=== PATIENT | male | born 1995 | race Asian ===

== ENCOUNTER 2021-11-30 00:17 | Emergency (ER) | payer MEDICAID ==
[~2021-11-30] VITALS: Ht 167.6 cm; Wt 68.0 kg
--- NOTE | 2021-11-30 01:00 | NUR ---
security guards dispatcher at pt's bedside
--- NOTE | 2021-11-30 01:03 | NUR ---
BIBS FOR S/I WITH NO PLAN SEEKING VOLUNTARY ADMISSION TO [facility]. PT A/OX3; TOLERATING R/A WELL WITH NO SOB. PT IN GOWN, WANDED BY SECURITY, AND BELONGINGS PLACED IN STORAGE. SAFETY MEASURES IN PLACE.
[2021-11-30 01:34] LABS: BASOPHILS % (AUTO) 0.5 % (0.0-2.0); EOSINOPHILS % (AUTO) 1.4 % (0.0-6.0); HEMATOCRIT 45 % (39-51); LYMPHOCYTES # (AUTO) 2.1 K/uL (0.8-4.8); LYMPHOCYTES % (AUTO) 22.8 % (20.0-44.0); MEAN CORPUSCULAR HGB CONC 33 g/dl (31.0-36.0); MEAN CORPUSCULAR VOLUME 92 fL (80-96); MONOCYTES # (AUTO) 0.8 K/uL (0.1-1.30); MONOCYTES % (AUTO) 9.2 % (2.0-12.0); NEUTROPHILS # (AUTO) 6.1 K/uL (1.8-8.9); NEUTROPHILS % (AUTO) 66.1 % (43.0-81.0); PLATELET COUNT (AUTO) 297 K/uL (150-450); RED BLOOD CELL COUNT(AUTO) 4.87 MIL/uL (4.5-6.0); WHITE BLOOD COUNT (AUTO) 9.3 K/uL (4.3-11.0)
[2021-11-30 01:42] LABS: CALCIUM, SERUM 8.8 mg/dL (8.5-10.1); CARBON DIOXIDE 30 mmol/L (21-32); CHLORIDE 101 mmol/L (98-107); GLUCOSE 84 mg/dL (74-106); POTASSIUM 4.2 mmol/L (3.5-5.1); SODIUM SERUM 136 mmol/L (136-145); UREA NITROGEN, BLOOD 12 mg/dL (7-18)
[2021-11-30 02:05] LABS: BILIRUBIN,DIRECT 0.1 mg/dL (0.0-0.2); BILIRUBIN,TOTAL 0.6 mg/dL (0.2-1.0)
[2021-11-30 02:06] LABS: ACETAMINOPHEN 0 ug/ml (10-30); ALANINE AMINOTRANSFERASE 40 U/L (12-78); ALBUMIN 4.5 g/dL (3.4-5.0); ALCOHOL, BLOOD < 3 mg/dL (0-0); ALKALINE PHOSPHATASE 75 U/L (46-116); ASPARTATE AMINOTRANSFERASE 29 U/L (15-37); TOTAL PROTEIN, SERUM 7.9 g/dL (6.4-8.2)
[2021-11-30 04:50] LABS: BILIRUBIN,URINE NEGATIVE (NEGATIVE); COLOR,URINE YELLOW (YELLOW); LEUKOCYTE ESTERASE ,URINE NEGATIVE (NEGATIVE); NITRITE, URINE NEGATIVE (NEGATIVE); PROTEIN,URINE NEGATIVE (NEGATIVE); UGLUCOSE NEGATIVE (NEGATIVE); UROBILINOGEN,URINE 0.2 EU/dL (0.2)
--- NOTE | 2021-11-30 04:51 | NUR ---
FOOD PROVIDED TO PT
--- NOTE | 2021-11-30 05:30 | NUR ---
CLINICALS FAXED TO [facility]
--- NOTE | 2021-11-30 07:55 | NUR ---
Pt upset states "I came here for prescription refill been here 8H and it still has NOT been done. I just want my stuff so I can leave. I an NOT suicidal" Easily directable. AAO x3. [facility]CS-15 Refusing any further intervention and care. Dr charles aware Pt not on psych hold. For discharge
--- NOTE | 2021-11-30 07:55 | NUR ---
PATIENT VERBALIZES HE'S NOT SUICIDAL ANYMORE AND WANTED TO LEAVE. MADE MD AWARE
--- NOTE | 2021-11-30 08:00 | NUR ---
Patient given written and verbal discharge instructions. Patient verbalizes understanding of instructions. Patient is ambulatory with steady gait. Refuses offer of [facility] placement. Patient given list of available shelters in surrounding area. All belongings given back to patient. Name band removed. In proper clothing upon discharge.
[2021-11-30 08:07] VITALS: BP 118/75
== END 2021-11-30 08:07 | disposition home or self-care (01) ==
LOC: ER 00:24
DX: R45.851 Suicidal ideations (principal); F19.10 Other psychoactive substance abuse, uncomplicated; Z20.822 Contact with and (suspected) exposure to COVID-19; Z59.00 Homelessness unspecified
CPT/HCPCS: 36415; 80048; 80076; 80143; 80307; 80320; 81003; 85025; 87426; 99285; C9803; G0480

== ENCOUNTER 2024-02-06 14:12 | Inpatient (IN) | payer OTHER ==
[~2024-02-06] VITALS: Ht 170.2 cm; Wt 70.3 kg
[2024-02-06] MEDS ORDERED: MERO1VIA23 IV (22:28)
[2024-02-06] MEDS ORDERED: POTA20TA83 IV (22:28)
[2024-02-06] MEDS ORDERED: NICO1PAT44 TD (22:28)
[2024-02-06] MEDS ORDERED: CHLO25CA22 PO (22:28)
[2024-02-06] MEDS ORDERED: VENL75TA4 PO (22:28)
[2024-02-06] MEDS ORDERED: ONDA4TAB5 IV (22:28)
[2024-02-06] MEDS ORDERED: VITS5OIN2 TP (22:28)
[2024-02-06] MEDS ORDERED: ACET325T53 MC (22:28)
[2024-02-06] MEDS ORDERED: MORP15TA IV (22:28)
[2024-02-06] MEDS ORDERED: QUET400T PO (22:28)
[2024-02-06] MEDS ORDERED: ENOX40DI SQ (22:28)
[2024-02-06] MEDS ORDERED: HYDR50TA61 PO (22:28)
[2024-02-06] MEDS ORDERED: VANC250C12 IV (22:28)
[2024-02-06] MEDS ORDERED: LORA-259 PO (22:28)
[2024-02-06] MEDS ORDERED: GABA600T12 PO (22:28)
[2024-02-06] MEDS ORDERED: PANT40TA2 PO (22:28)
[2024-02-06] MEDS ORDERED: CLINDAMYCIN PHOSPHATE IV 600 MG/4 ML VIAL IV SCH (23:00)
[2024-02-06] MEDS ORDERED: Z GUARD REMEDY 4 OZ OINT TP PRN (23:00)
[2024-02-06] MEDS ORDERED: ZOLPIDEM TARTRATE 5 MG TABLET PO PRN (23:00)
[2024-02-06] MEDS ORDERED: MAG HYDROX/AL HYDROX/SIMETH 30 ML UDC PO PRN (23:00)
[2024-02-06] MEDS ORDERED: ONDANSETRON HCL/PF 4 MG/2 ML VIAL IVP PRN (23:00)
[2024-02-06] MEDS ORDERED: MEROPENEM 1 G VIAL IV SCH (23:00)
[2024-02-07] VITALS: BP 140/85; TEMP 99.5; O2SAT 95
[2024-02-07] MEDS: CHLORDIAZEPOXIDE HCL 25 MG CAPSULE PO SCH (00:09)
[2024-02-07] MEDS: MORPHINE SULFATE INJ 2 MG/ML DISP.SYRIN IV PRN (00:16)
[2024-02-07] MEDS: IV NS 0.9% 1,000 ML IV PRN (00:44)
[2024-02-07] MEDS ORDERED: MEROPENEM 1 G VIAL IV ONE (00:56)
[2024-02-07] MEDS ORDERED: CLINDAMYCIN 900 MG/6 ML VIAL ONE (00:57)
[2024-02-07] MEDS: MEROPENEM 1 G in IV NS 0.9% 50 ML IV ONE (01:14)
[2024-02-07] MEDS: NS 0.9% IV SCH (02:01)
[2024-02-07] MEDS: CLINDAMYCIN PHOSPHATE IV SCH (02:01)
[2024-02-07] MEDS: VANCOMYCIN 1 GM /D5W 250 ML PB IV ONE (04:11)
[2024-02-07] MEDS: VANCOMYCIN 1 GM in IV NS 0.9% 250 ML IV ONE (04:22)
[2024-02-07] MEDS ORDERED: VANCOMYCIN IV SCH (05:00)
[2024-02-07] MEDS ORDERED: CLINDAMYCIN PHOSPHATE IV 600 MG/4 ML VIAL IV ONE (05:00)
[2024-02-07 06:33] LABS: BASOPHILS % (AUTO) 0.2 % (0.0-2.0); EOSINOPHILS # (AUTO) 0.1 K/uL (0.0-0.7); EOSINOPHILS % (AUTO) 0.4 % (0.0-6.0); HEMATOCRIT 40 % (39-51); HEMOGLOBIN 13.5 g/dL (13.5-17.5); LYMPHOCYTES # (AUTO) 1.8 K/uL (0.8-4.8); LYMPHOCYTES % (AUTO) 10.2 % (20.0-44.0); MEAN CORPUSCULAR HEMOGLOBIN 31 PG (26.0-33.0); MEAN CORPUSCULAR HGB CONC 34 g/dl (31.0-36.0); MEAN CORPUSCULAR VOLUME 93 fL (80-96); MONOCYTES # (AUTO) 1.1 K/uL (0.1-1.30); NEUTROPHILS # (AUTO) 14.7 K/uL (1.8-8.9); NEUTROPHILS % (AUTO) 83.2 % (43.0-81.0); PLATELET COUNT (AUTO) 273 K/uL (150-450); RED BLOOD CELL COUNT(AUTO) 4.31 MIL/uL (4.5-6.0); RED CELL DISTRIBUTION WIDTH 13.6 % (11.5-15.0); WHITE BLOOD COUNT (AUTO) 17.6 K/uL (4.3-11.0)
[2024-02-07 06:51] LABS: POTASSIUM 3.6 mmol/L (3.5-5.1)
[2024-02-07 07:04] LABS: CALCIUM, SERUM 8.4 mg/dL (8.5-10.1)
[2024-02-07 08:00] VITALS: BP 127/77; TEMP 99; O2SAT 96
[2024-02-07] MEDS: ENOXAPARIN SODIUM 40 MG/0.4 ML DISP.SYRIN SQ SCH (08:09)
[2024-02-07] MEDS: VENLAFAXINE 37.5 MG TABLET PO SCH (08:10)
[2024-02-07] MEDS: PANTOPRAZOLE 40 MG TABLET.DR PO SCH (08:10)
[2024-02-07] MEDS: hydrOXYzine PAMOATE 25 MG CAPSULE PO SCH (08:10)
[2024-02-07] MEDS ORDERED: GABA600T12 PO (08:11)
[2024-02-07] MEDS ORDERED: PROP10TA10 PO (08:11)
[2024-02-07] MEDS: NICOTINE PATCH (14MG) 14 MG PATCH.TD24 TD SCH (08:13)
[2024-02-07] MEDS: VITS A AND D/WHITE PET/LANOLIN 5 GM PACKET TP SCH (08:15)
[2024-02-07] MEDS: ACETAMINOPHEN 325 MG TABLET PO PRN (08:53)
[2024-02-07] MEDS: VANCOMYCIN 1 GM in IV D5W 250ml IV SCH (09:00)
[2024-02-07 09:23] LABS: MAGNESIUM 1.5 mg/dL (1.8-2.4); PHOSPHORUS 3.4 mg/dL (2.5-4.9)
[2024-02-07] MEDS: MEROPENEM 1 G in IV NS 0.9% 100 ML IV SCH (10:05)
[2024-02-07] MEDS ORDERED: POLYMYXIN B SULFATE 0 UNITS ONE (13:37)
[2024-02-07] MEDS ORDERED: LIDOCAINE HCL/MPF 1% 30 ML VIAL IJ ONE (13:37)
[2024-02-07] MEDS ORDERED: BUPIVACAINE 0.5 % PF 150 MG/30 ML VIAL ONE (13:37)
[2024-02-07] MEDS ORDERED: LIDOCAINE 1%-EPI 1:100,000 20 ML VIAL ONE (13:37)
[2024-02-07] MEDS: LORAZEPAM 1 MG TABLET PO SCH (13:54)
[2024-02-07] MEDS ORDERED: FENTANYL PF 100MCG/2ML AMPUL ONE ×3 (15:52→17:37)
[2024-02-07] MEDS ORDERED: ROCURONIUM BROMIDE 50 MG/5 ML ONE (15:52)
[2024-02-07] MEDS ORDERED: CELLULOSE,OXIDIZED 1 EA PACK MC ONE (16:25)
[2024-02-07] MEDS ORDERED: EPINEPHRINE (1:1000) 1 MG/ML AMPUL ONE (17:06)
[2024-02-07 20:00] VITALS: BP 135/87; TEMP 98.8; O2SAT 97
[2024-02-07] MEDS: GABAPENTIN 400 MG CAPSULE PO SCH (21:12)
[2024-02-07] MEDS: QUETIAPINE FUMARATE 100 MG TABLET PO SCH (23:56)
[2024-02-08 08:00] VITALS: BP 128/67; TEMP 98.6; O2SAT 94
[2024-02-08 10:34] LABS: CREATININE 0.9 mg/dL (0.6-1.3)
[2024-02-08 15:45] LABS: HIV-1 p24 ANTIGEN NON REACTIVE (NONREACTIVE); HIV-1/2 ANTIBODY NON REACTIVE (NONREACTIVE)
[2024-02-08 16:00] VITALS: BP 118/68; TEMP 95.6; O2SAT 98
[2024-02-08 20:00] VITALS: BP 114/71; TEMP 98.6; O2SAT 99
[2024-02-09] MEDS: MAGNESIUM HYDROXIDE 30 ML UDC PO PRN (00:37)
[2024-02-09 07:36] LABS: BASOPHILS % (AUTO) 0.5 % (0.0-2.0); EOSINOPHILS # (AUTO) 0.2 K/uL (0.0-0.7); EOSINOPHILS % (AUTO) 3.2 % (0.0-6.0); HEMATOCRIT 36 % (39-51); HEMOGLOBIN 12.2 g/dL (13.5-17.5); LYMPHOCYTES # (AUTO) 1.6 K/uL (0.8-4.8); LYMPHOCYTES % (AUTO) 27.7 % (20.0-44.0); MEAN CORPUSCULAR HEMOGLOBIN 31 PG (26.0-33.0); MEAN CORPUSCULAR HGB CONC 34 g/dl (31.0-36.0); MEAN CORPUSCULAR VOLUME 92 fL (80-96); MONOCYTES # (AUTO) 0.7 K/uL (0.1-1.30); MONOCYTES % (AUTO) 11.5 % (2.0-12.0); NEUTROPHILS # (AUTO) 3.3 K/uL (1.8-8.9); NEUTROPHILS % (AUTO) 57.1 % (43.0-81.0); PLATELET COUNT (AUTO) 354 K/uL (150-450); RED BLOOD CELL COUNT(AUTO) 3.89 MIL/uL (4.5-6.0); RED CELL DISTRIBUTION WIDTH 13.7 % (11.5-15.0); WHITE BLOOD COUNT (AUTO) 5.8 K/uL (4.3-11.0)
[2024-02-09 08:00] VITALS: BP 117/64; TEMP 98.7; O2SAT 97
[2024-02-09 08:10] LABS: ALBUMIN 2.1 g/dL (3.4-5.0); BILIRUBIN,TOTAL 0.4 mg/dL (0.2-1.0); CREATININE 0.8 mg/dL (0.6-1.3); MAGNESIUM 2.5 mg/dL (1.8-2.4); PHOSPHORUS 3.5 mg/dL (2.5-4.9); POTASSIUM 3.9 mmol/L (3.5-5.1); TOTAL PROTEIN, SERUM 6.4 g/dL (6.4-8.2)
[2024-02-09] MEDS: MEROPENEM 1 G in IV NS 0.9% 100 ML IV SCH (08:17)
[2024-02-09] MEDS: GABAPENTIN 300 MG CAPSULE PO SCH (08:19)
[2024-02-09 09:09] VITALS: BP 131/78
[2024-02-09] MEDS: HYDROMORPHONE 1 MG/1 ML DISP.SYRIN IV ONE (11:00)
[2024-02-09] MEDS: KETOROLAC TROMETHAMINE 15 MG/ML VIAL IV ONE (11:00)
[2024-02-09 16:00] VITALS: BP 109/62; TEMP 97.5; O2SAT 100
[2024-02-09 20:00] VITALS: BP 112/61; TEMP 98.4; O2SAT 97
[2024-02-09 23:55] VITALS: BP 95/50; TEMP 98.1; O2SAT 94
[2024-02-10 00:30] VITALS: BP 116/77; TEMP 97.5
[2024-02-10 06:20] LABS: BASOPHILS % (AUTO) 0.5 % (0.0-2.0); EOSINOPHILS # (AUTO) 0.2 K/uL (0.0-0.7); EOSINOPHILS % (AUTO) 3.1 % (0.0-6.0); HEMATOCRIT 28 % (39-51); HEMOGLOBIN 9.4 g/dL (13.5-17.5); LYMPHOCYTES # (AUTO) 1.9 K/uL (0.8-4.8); LYMPHOCYTES % (AUTO) 27.8 % (20.0-44.0); MEAN CORPUSCULAR HEMOGLOBIN 32 PG (26.0-33.0); MEAN CORPUSCULAR HGB CONC 34 g/dl (31.0-36.0); MEAN CORPUSCULAR VOLUME 95 fL (80-96); MONOCYTES # (AUTO) 0.6 K/uL (0.1-1.30); MONOCYTES % (AUTO) 9.2 % (2.0-12.0); NEUTROPHILS % (AUTO) 59.4 % (43.0-81.0); PLATELET COUNT (AUTO) 339 K/uL (150-450); RED BLOOD CELL COUNT(AUTO) 2.97 MIL/uL (4.5-6.0); RED CELL DISTRIBUTION WIDTH 13.5 % (11.5-15.0); WHITE BLOOD COUNT (AUTO) 6.8 K/uL (4.3-11.0)
[2024-02-10 06:50] LABS: BILIRUBIN,TOTAL 0.2 mg/dL (0.2-1.0); CALCIUM, SERUM 6.7 mg/dL (8.5-10.1); CREATININE 0.7 mg/dL (0.6-1.3); MAGNESIUM 1.8 mg/dL (1.8-2.4); PHOSPHORUS 2.5 mg/dL (2.5-4.9); TOTAL PROTEIN, SERUM 4.4 g/dL (6.4-8.2)
[2024-02-10 08:00] VITALS: BP 138/114; TEMP 97.9; O2SAT 97
[2024-02-10 08:20] LABS: ALBUMIN 1.6 g/dL (3.4-5.0)
[2024-02-10] MEDS: VANCOMYCIN 750 MG in IV D5W 250 ML IV SCH (09:11)
[2024-02-10] MEDS: NICOTINE PATCH (21MG) 21 MG PATCH.TD24 TD SCH (09:11)
[2024-02-10] MEDS: POTASSIUM CHLORIDE 20 MEQ TAB.PRT.SR PO ONE (11:26)
[2024-02-10] MEDS: POTASSIUM CHLORIDE 20 MEQ TAB.PRT.SR PO SCH (11:26)
[2024-02-10 16:37] VITALS: BP 108/61; TEMP 99.5; O2SAT 98
[2024-02-10] MEDS: KETOROLAC TROMETHAMINE INJ 30 MG/ML VIAL IV ONE (17:09)
[2024-02-10 20:00] VITALS: BP 124/57; TEMP 97.7; O2SAT 100
[2024-02-11 01:06] LABS: HEPATITIS B CORE AB, TOTAL Negative (Negative)
[2024-02-11 06:52] LABS: BASOPHILS % (AUTO) 0.4 % (0.0-2.0); EOSINOPHILS # (AUTO) 0.3 K/uL (0.0-0.7); EOSINOPHILS % (AUTO) 3.9 % (0.0-6.0); HEMATOCRIT 33 % (39-51); HEMOGLOBIN 11.3 g/dL (13.5-17.5); LYMPHOCYTES % (AUTO) 29.8 % (20.0-44.0); MEAN CORPUSCULAR HEMOGLOBIN 32 PG (26.0-33.0); MEAN CORPUSCULAR HGB CONC 34 g/dl (31.0-36.0); MEAN CORPUSCULAR VOLUME 93 fL (80-96); MONOCYTES # (AUTO) 0.7 K/uL (0.1-1.30); MONOCYTES % (AUTO) 9.6 % (2.0-12.0); NEUTROPHILS # (AUTO) 3.9 K/uL (1.8-8.9); NEUTROPHILS % (AUTO) 56.3 % (43.0-81.0); PLATELET COUNT (AUTO) 382 K/uL (150-450); RED BLOOD CELL COUNT(AUTO) 3.58 MIL/uL (4.5-6.0); RED CELL DISTRIBUTION WIDTH 13.3 % (11.5-15.0); WHITE BLOOD COUNT (AUTO) 6.9 K/uL (4.3-11.0)
[2024-02-11 09:13] LABS: ALBUMIN 2.2 g/dL (3.4-5.0); BILIRUBIN,TOTAL 0.2 mg/dL (0.2-1.0); CALCIUM, SERUM 8.7 mg/dL (8.5-10.1); CREATININE 0.8 mg/dL (0.6-1.3); MAGNESIUM 2.4 mg/dL (1.8-2.4); PHOSPHORUS 3.8 mg/dL (2.5-4.9); TOTAL PROTEIN, SERUM 5.8 g/dL (6.4-8.2)
[2024-02-11] MEDS: CLINDAMYCIN HCL 150 MG CAPSULE PO SCH (11:16)
[2024-02-11] MEDS ORDERED: CEFD300C3 PO (11:30)
[2024-02-11] MEDS ORDERED: CLIN300C12 PO (11:30)
[2024-02-11] MEDS ORDERED: CEPHALEXIN MONOHYDRATE 250 MG CAPSULE PO SCH (12:00)
[2024-02-11] MEDS: HYDROMORPHONE 1 MG/1 ML DISP.SYRIN IV ONE (12:55)
[2024-02-11] MEDS: CEFTRIAXONE 2 G in IV D5W 100 ML IV SCH (15:27)
[2024-02-11 16:00] VITALS: BP 129/73; TEMP 97.7; O2SAT 98
[2024-02-11] MEDS: LORAZEPAM 1 MG TABLET PO PRN (19:44)
[2024-02-11 23:57] VITALS: BP 100/70; TEMP 98; O2SAT 96
[2024-02-12 02:57] VITALS: BP 100/70; O2SAT 96
[2024-02-12 09:28] VITALS: BP 97/53; TEMP 98.6; O2SAT 98
[2024-02-12] MEDS ORDERED: OXYC1TAB12 PO (11:53)
== END 2024-02-12 16:08 | disposition home health service (06) | DRG 580 ==
LOC: MED 21:40
PROVIDERS: ADMIT Nurse Practitioner Family; ATTEND Internal Medicine
PROC: 0KB80ZZ Excision of Left Upper Arm Muscle, Open Approach (ICD-10-PCS; principal; 2024-02-07)
PROC: 0X390ZZ Control Bleeding in Left Upper Arm, Open Approach (ICD-10-PCS; 2024-02-07)
DX: L03.114 Cellulitis of left upper limb (principal); M60.022 Infective myositis, left upper arm; L02.414 Cutaneous abscess of left upper limb; F41.9 Anxiety disorder, unspecified; F19.10 Other psychoactive substance abuse, uncomplicated; Z88.0 Allergy status to penicillin
CPT/HCPCS: 36415; 80048-TC; 80053-TC; 80202-TC; 83735-TC; 84100-TC; 85025-TC; 86140-TC; 86704; 86803; 87040-TC; 87081-TC; 87340; 87806; A4217; A4223; A6253; A6403; A6407; G0378; J0171; J0696; J1170; J1650; J1885; J2185; J2270; J2704; J3010; J3370; J3371; J3490; J7030; J7050; J7060; Q0177

== ENCOUNTER 2024-02-18 10:00 | Emergency (ER) | payer OTHER, MEDICAID ==
[~2024-02-18] VITALS: Ht 170.2 cm; Wt 64.0 kg
[~2024-02-18 10:00] MED LIST: ACET325T53 MC; CEFD300C3 PO; CLIN300C12 PO; GABA600T12 PO; HYDR50TA61 PO; LORA-259 PO; OXYC1TAB12 PO; PANT40TA2 PO; POTA20TA83 IV; PROP10TA10 PO; QUET400T PO; VENL75TA4 PO; VITS5OIN2 TP
[2024-02-18 10:03] VITALS: TEMP 98.6
--- NOTE | 2024-02-18 10:20 | NUR ---
[employer] AT PT BEDSIDE
[2024-02-18] MEDS: IV NS 0.9% 500 ML BAG IV ONE (10:39)
[2024-02-18] MEDS: NALOXONE HCL 0.4 MG/ML AMPUL IV ONE (10:40)
[2024-02-18 10:44] LABS: BASOPHILS % (AUTO) 0.4 % (0.0-2.0); EOSINOPHILS % (AUTO) 0.3 % (0.0-6.0); HEMATOCRIT 34 % (39-51); LYMPHOCYTES # (AUTO) 1.1 K/uL (0.8-4.8); LYMPHOCYTES % (AUTO) 9.7 % (20.0-44.0); MEAN CORPUSCULAR HEMOGLOBIN 31 PG (26.0-33.0); MEAN CORPUSCULAR HGB CONC 33 g/dl (31.0-36.0); MEAN CORPUSCULAR VOLUME 95 fL (80-96); MONOCYTES # (AUTO) 0.5 K/uL (0.1-1.30); MONOCYTES % (AUTO) 4.3 % (2.0-12.0); NEUTROPHILS # (AUTO) 9.8 K/uL (1.8-8.9); NEUTROPHILS % (AUTO) 85.3 % (43.0-81.0); PLATELET COUNT (AUTO) 403 K/uL (150-450); RED BLOOD CELL COUNT(AUTO) 3.56 MIL/uL (4.5-6.0); RED CELL DISTRIBUTION WIDTH 14.6 % (11.5-15.0); WHITE BLOOD COUNT (AUTO) 11.5 K/uL (4.3-11.0)
[2024-02-18 10:54] LABS: ALCOHOL, BLOOD < 3 mg/dL (0-10); CALCIUM, SERUM 8.9 mg/dL (8.5-10.1); CARBON DIOXIDE 26 mmol/L (21-32); CHLORIDE 100 mmol/L (98-107); CREATININE 1.3 mg/dL (0.6-1.3); GLUCOSE 181 mg/dL (74-106); SODIUM SERUM 137 mmol/L (136-145); UREA NITROGEN, BLOOD 19 mg/dL (7-18)
--- NOTE | 2024-02-18 10:58 | NUR ---
ON 02/12/24 PT RECENTLY DISCHARGE FROM [facility] FOR LEFT ARM CELLULITIS. LEFT ARM CURRENTLY WRAPPED WITH [facility]LIN DRSG
--- NOTE | 2024-02-18 11:02 | NUR ---
PT AROUSABLE, BUT FALLS ASLEEP EASILY ASKING TO LEAVE / WANTING TO GO HOME CONT TO MON AT THIS TIME VITAL SIGNS REMAINS STABLE
[2024-02-18 11:09] LABS: AMPHETAMINE, URINE NEGATIVE (NEGATIVE); BARBITURATE, URINE NEGATIVE (NEGATIVE); BENZODIAZEPINE, URINE NEGATIVE (NEGATIVE); COCCAINE, URINE NEGATIVE (NEGATIVE); OPIATE, URINE NEGATIVE (NEGATIVE); PHENCYCLIDINE SCREEN,URINE NEGATIVE (NEGATIVE)
[2024-02-18] MEDS ORDERED: NALO4SPR BNOSTRILS (11:22)
[2024-02-18 11:24] LABS: CANNABINOID, URINE POSITIVE (NEGATIVE)
[2024-02-18] MEDS ORDERED: POTASSIUM CHLORIDE 20 MEQ TAB.PRT.SR PO ONE (11:30)
--- NOTE | 2024-02-18 11:33 | NUR ---
radio survey worker consultation: radio survey worker consultation requested for overdose. The patient was alert and oriented x2. Patient was calm and cooperative. The patient stated prior to being at the hospital he was at home and does not remember what happened afterwards. Patient stated that he resides at [address] [place] [address] ([phone]). The patient stated he resides there with his sister and is fully ambulatory. Patient stated he has no income and denied having any mental health illnesses. The patient denied any substance abuse, but patients labs indicate patient is positive for cannabinoids. Patient denied having any visual/auditory hallucinations. Patient denied any SI/HI ideation. Patient was accepting of substance abuse referrals. DC PLAN: Patient will be discharged back home to [address] [place] [address] ([phone]) Substance Abuse resources provided included: [facility] Self-[facility]pl[facility] ([facility]) ; [facility] [id number] [facility]. [place] [id number] ; [facility] [id number] [place] [id number] ; [facility]
[2024-02-18 12:04] VITALS: BP 124/68; O2SAT 99
--- NOTE | 2024-02-18 12:13 | NUR ---
D/C IV to Left AC upon discharge Patient discharged to home in stable condition. Written and verbal after care instructions given. Patient verbalizes understanding of instruction. picked up by sister pt signed signature page but refused to take SW refferal papers and discharge instructions.
== END 2024-02-18 12:13 | disposition home or self-care (01) ==
LOC: ER 10:05
DX: T40.601A Poisoning by unspecified narcotics, accidental (unintentional), initial encounter (principal); F19.10 Other psychoactive substance abuse, uncomplicated; E87.6 Hypokalemia; Z88.8 Allergy status to other drugs, medicaments and biological substances; Y92.89 Other specified places as the place of occurrence of the external cause
CPT/HCPCS: 99283; 96360; 85025; 80048; 36415; 80320; 80307; J7040; G0480

== ENCOUNTER 2025-03-05 15:02 | Emergency (ER) | payer MEDICARE, MEDICAID ==
[~2025-03-05] VITALS: Ht 170.2 cm; Wt 75.7 kg
[~2025-03-05 15:02] MED LIST changes: +NALO4SPR BNOSTRILS
[2025-03-05 15:35] LABS: PLATELET COUNT (AUTO) 204 K/uL (150-450); RED BLOOD CELL COUNT(AUTO) 4.50 MIL/uL (4.5-6.0); RED CELL DISTRIBUTION WIDTH 13.6 % (11.5-15.0); WHITE BLOOD COUNT (AUTO) 4.5 K/uL (4.3-11.0)
[2025-03-05 15:42] LABS: CALCIUM, SERUM 8.2 mg/dL (8.5-10.1); CREATININE 0.9 mg/dL (0.6-1.3); SODIUM SERUM 144 mmol/L (136-145); UREA NITROGEN, BLOOD 16 mg/dL (7-18)
[2025-03-05 15:48] LABS: ASPARTATE AMINOTRANSFERASE 21 U/L (15-37); TOTAL PROTEIN, SERUM 6.9 g/dL (6.4-8.2)
[2025-03-05 15:51] LABS: ALCOHOL, BLOOD 8 mg/dL (0-10)
[2025-03-05] MEDS ORDERED: NALO4SPR BNOSTRILS (17:10)
[2025-03-05 22:42] VITALS: BP 129/82; TEMP 98.7; O2SAT 95
== END 2025-03-05 22:42 | disposition home or self-care (01) ==
LOC: ER 15:10
DX: T40.601A Poisoning by unspecified narcotics, accidental (unintentional), initial encounter (principal); F19.10 Other psychoactive substance abuse, uncomplicated; Z79.899 Other long term (current) drug therapy; Z88.0 Allergy status to penicillin; Y92.89 Other specified places as the place of occurrence of the external cause
CPT/HCPCS: 36415; 80048-TC; 80076-TC; 85025-TC; G0480

== ENCOUNTER 2025-03-06 10:31 | Emergency (ER) | payer MEDICARE, OTHER ==
[~2025-03-06] VITALS: Ht 165.1 cm; Wt 85.7 kg
[2025-03-06 10:38] VITALS: TEMP 98.1
[2025-03-06 17:51] VITALS: BP 110/65; O2SAT 97
[2025-03-06 17:55] LABS: BARBITURATE, URINE NEGATIVE (NEGATIVE); CANNABINOID, URINE NEGATIVE (NEGATIVE); OPIATE, URINE NEGATIVE (NEGATIVE)
[2025-03-06 17:57] LABS: AMPHETAMINE, URINE POSITIVE (NEGATIVE); BENZODIAZEPINE, URINE POSITIVE (NEGATIVE); COCCAINE, URINE POSITIVE (NEGATIVE)
== END 2025-03-06 17:25 | disposition home or self-care (01) ==
LOC: ER 10:39
DX: F19.10 Other psychoactive substance abuse, uncomplicated (principal); R41.82 Altered mental status, unspecified; Z79.899 Other long term (current) drug therapy; Z88.0 Allergy status to penicillin; Z86.59 Personal history of other mental and behavioral disorders; Z59.00 Homelessness unspecified
CPT/HCPCS: 70450-TC

== ENCOUNTER 2025-03-23 12:16 | Emergency (ER) | payer MEDICARE, OTHER ==
[~2025-03-23] VITALS: Ht 167.6 cm; Wt 79.4 kg
[2025-03-23] MEDS: IV NS 0.9% 1,000 ML BAG IV ONE (12:48)
[2025-03-23 12:51] LABS: PLATELET COUNT (AUTO) 319 K/uL (150-450); RED BLOOD CELL COUNT(AUTO) 4.08 MIL/uL (4.5-6.0); RED CELL DISTRIBUTION WIDTH 13.3 % (11.5-15.0); WHITE BLOOD COUNT (AUTO) 6.9 K/uL (4.3-11.0)
[2025-03-23 13:00] VITALS: BP 127/80; TEMP 98.5; O2SAT 98
[2025-03-23 13:10] LABS: CALCIUM, SERUM 8.4 mg/dL (8.5-10.1); CREATININE 0.8 mg/dL (0.6-1.3); SODIUM SERUM 139 mmol/L (136-145); UREA NITROGEN, BLOOD 14 mg/dL (7-18)
[2025-03-23 13:14] LABS: ASPARTATE AMINOTRANSFERASE 36 U/L (15-37); TOTAL PROTEIN, SERUM 6.9 g/dL (6.4-8.2)
[2025-03-23 15:22] LABS: APPEARANCE,URINE SLIGHTLY CLOUDY (CLEAR); BLOOD, URINE NEGATIVE Ery/uL (NEGATIVE); LEUKOCYTE ESTERASE ,URINE NEGATIVE (NEGATIVE); NITRITE, URINE NEGATIVE (NEGATIVE); UGLUCOSE NEGATIVE (NEGATIVE)
[2025-03-23 15:26] LABS: ADD URINE CULTURE YES; SQUAMOUS EPITHELIAL CELL,UR 0-2 /HPF (None Seen)
[2025-03-23 15:34] LABS: BARBITURATE, URINE NEGATIVE (NEGATIVE); OPIATE, URINE NEGATIVE (NEGATIVE)
[2025-03-23 15:37] LABS: AMPHETAMINE, URINE POSITIVE (NEGATIVE); BENZODIAZEPINE, URINE POSITIVE (NEGATIVE); CANNABINOID, URINE POSITIVE (NEGATIVE); COCCAINE, URINE POSITIVE (NEGATIVE)
== END 2025-03-23 15:35 | disposition left against medical advice (07) ==
LOC: ER 12:18
DX: F19.10 Other psychoactive substance abuse, uncomplicated (principal); Z79.899 Other long term (current) drug therapy; Z88.0 Allergy status to penicillin; R51.9 Headache, unspecified
CPT/HCPCS: 99284; 70450; 96360; 70486; 85025; 80048; 87086; 80076; 36415; 80143; 80307; 81001; J7030